=== PATIENT | male | born 1980 | race African-American/Black ===

== ENCOUNTER 2021-10-18 21:48 | Emergency (ER) | payer MEDICAID, OTHER ==
[~2021-10-18] VITALS: Ht 170.2 cm; Wt 77.1 kg
[2021-10-19] MEDS: HALOPERIDOL LACTATE INJ 5 MG/ML VIAL IM ONE (05:12)
--- NOTE | 2021-10-19 07:34 | NUR ---
PATIENT IN BED ASLEEP, EASILY AROUSABLE BY VOICE. HOOKED TO MONITOR. VSS. WILL CONTINUE TO MONITOR, KEPT WARM AND SAFE.
--- NOTE | 2021-10-19 12:10 | NUR ---
LUNCH TRAY PROVIDED. TOLERATED PO WELL.
--- NOTE | 2021-10-19 14:02 | NUR ---
"SS Consult: SS consult for ETOH. Pt. Is a 40-year-old male. Pt. does not demonstrate adequate insight to the reason for hospitalization. Per pt., he does not remember how he got to hospital. Pt. was oriented x3, alert, and cooperative. During interview, pt. was capable of following directions, made appropriate eye-contact, and appeared tired. Evidenced by: red eyes. Pt.'s speech was at a normal rate. SW explored pt.'s Hx of mental health and substance abuse. Pt. reported no Hx of mental health, suicidal or homicidal. Pt. denies auditory hallucinations, visual hallucinations, paranoia, or delusions. Per pt., he currently uses methamphetamine and marijuana. Per pt., he has not try receiving help nor want to. SW explored pt.'s living situation. Per pt., he has been homeless for 10 years and lives in a tent. Per pt., he reports having no adequate support. Plan: SW provided available addiction and homeless resources and pt. accepted. Pt. was willing to sign homeless waiver, and its placed in his chart. Per pt., he will use the resources that are provided. Resources Provided: Year-round shelters: [facility] [address] [place] [address] ; [facility] [place] [address] [place] [address]; [facility] [facility] Fvafiik[address] [facility] [address] Winter Shelters: [facility] Provider: [facility] Address: [address] [place], [place] [address]Zeferino Dupont, [facility] # of Beds: 47 Population Served: [facility] 6 | [facility] Gabi [place] Provider: [facility] Address: [address] [place] [address], [address] # of Beds: 66 Population Served: [facility]ocks [place] Provider: First to Serve Address: [address] [facility], [address] # of Beds: 56 Population Served: [facility] Richard RafZeferino GuerrierCandor Provider: / [facility] Address: [address] [facility], [address] # of Beds: 49 Population Served: [facility] 8 | [place] Provider: First to Serve Address: [facility]5 [facility] Giraldo # of Beds: 37 Population Served: [facility]: [facility]: [address] [place] ; [facility] [address] [facility] ; [facility] 6[address] [facility] . Food Resources: [place] [facility] at [facility]- [address] [place]; Meet Each Need with Dignity ([facility]) [address] [facility]; [facility] 89[address] [facility]; [facility] 0865 [facility]. Mental Health resources provided: [facility] [address] [place], [place] [id number] ; [facility] [address] [facility] [address], [place], [place] [phone] ; [facility] [address] [place], [place] [id number] ; [facility] [address] [place], [place] [phone] Healthcare Clinics: [facility] [address] [facility], [address] [place]. [place] ; [facility] [address] [facility] [address] [place] [address]; [facility] [place] [address] [facility]. [place] [id number]) [phone] Counseling[facility] [address] [facility], [address] [place], [place] [address] (Specializes in in-depth psychotherapy for emotional distress: anxiety, depression, interpersonal conflicts, life transitions, childhood abuse) [facility] [address] [place] [address] (Assist with solving problem marital difficulties, separation & divorce, aging parents, & grief, chronic & terminal illness) [facility] [address] [place], [place] [address] (Deal with loss & grief, anxiety, marital difficulties) Homebound/Mental Health Services [address] [facility] [address] [place], [place] [phone] (Provide in-home mental services to people who are incapable of leaving their homes) [facility] Elder[facility] Senior Service/Resource Center [address] [place] [address] [facility] [address]14 [place], [place] [address] PSYCHIATRIC OUTPATIENT SERVICES [facility] Partial Hospitalization and Intensive Outpatient Program (Managed Care and [place] Only)[address] [facility] [phone] [facility] Partial Hospitalization and Outpatient Nxyotbb90422 [facility] [address] [place], [place] [phone] [facility] [place] Xny[address] [facility] [address] [place], [place] [phone] [facility] Partial Hospitalization and Outpatient Lestlco03850 [place], [phone] Substance Abuse resources provided included: [facility] Substance Abuse Self-Helpline (SASH) ; [facility] [address] [facility]. [place] [address] ; [facility] [address] [facility] [address] ; [facility] [address] [place] [facility] [address] ; [facility] [address] ; [facility] [address] [facility] [phone] ; [facility] [address] [facility] [phone] ; [facility] Substance Abuse Helpline(SAS)[facility] ; [facility] ; [facility] [place]; [facility] [place]; [facility] [place]; [facility] [place]; [facility] [place]; [facility] [place]; [facility] [place]; [facility] [place], [facility]. [place]; Alcoholics Anonymous -SFV; Xw-Zqup-Cymbkym ; Marijuana Anonymous -SFV; Narcotics Anonymous www.na.org;"
--- NOTE | 2021-10-19 15:15 | NUR ---
PATIENT IN BED ASLEEP, EASILY AROUSABLE BY VOICE. HOOKED TO MONITOR. VSS. WILL CONTINUE TO MONITOR, KEPT WARM AND SAFE.
[2021-10-19 17:36] VITALS: BP 111/69
--- NOTE | 2021-10-19 17:36 | NUR ---
Patient does not wish to proceed with medical care recommended by Dr. Neves. Patient given information related to possible complications, up to and including , which could occur as a result of leaving the hospital at this time. Patient verbalizes understanding of risks involved due to leaving against medical advice. Patient has signed AMA form. Ambulatory with steady gait.
== END 2021-10-19 17:36 | disposition home or self-care (01) ==
LOC: ER 21:51
DX: F10.129 Alcohol abuse with intoxication, unspecified (principal); R40.0 Somnolence; Z59.00 Homelessness unspecified; Y90.9 Presence of alcohol in blood, level not specified
CPT/HCPCS: 70450-TC

== ENCOUNTER 2022-01-13 16:37 | Emergency (ER) | payer SELFPAY ==
[~2022-01-13] VITALS: Ht 165.1 cm; Wt 62.6 kg
--- NOTE | 2022-01-13 17:49 | NUR ---
PT CAME TO ER C/O L MIDDLE FINGER PAIN/SWELLING X 2 DAYS. PT DOES NOT RECALL HOW HE INJURED IT. BLOOD BLISTER NOTED. AAOX4, BREATHING EVEN AND UNLABORED.
--- NOTE | 2022-01-13 17:51 | NUR ---
PA AT BEDSIDE
[2022-01-13] MEDS ORDERED: CLINDAMYCIN 900 MG in IV D5W 50 ML IV ONE (18:30)
[2022-01-13] MEDS ORDERED: VANCOMYCIN 1 GM in IV D5W 250 ML IV ONE (18:30)
[2022-01-13] MEDS ORDERED: IV NS 0.9% 1,000 ML BAG IV ONE (18:30)
--- NOTE | 2022-01-13 18:30 | NUR ---
MOVE SHEET SUBMITTED.
--- NOTE | 2022-01-13 18:50 | NUR ---
blood sample obtained and sent to lab
--- NOTE | 2022-01-13 19:19 | NUR ---
covid sample obtained and sent to lab
--- NOTE | 2022-01-13 19:40 | NUR ---
CALLED [facility] [phone] NO CAPACITY PER SNOW Lazar
--- NOTE | 2022-01-13 19:43 | NUR ---
CALLED [facility] [phone] AT [facility] PER FILOMENA.
--- NOTE | 2022-01-13 19:53 | NUR ---
CALLED [facility] [phone] PER BESSY NOT A BURN CENTER AND AT CAPACITY.
--- NOTE | 2022-01-13 20:00 | NUR ---
CALLED [facility] [phone] RAMANDEEP SPEAKING WITH GÉNESIS DONOVAN.
--- NOTE | 2022-01-13 20:08 | NUR ---
CALLED [facility] [phone] ROBIN WILL CONTACT GÉNESIS DONOVAN FOR CONSULT.
[2022-01-13 20:10] LABS: CALCIUM, SERUM 8.3 mg/dL (8.5-10.1); CREATININE 0.8 mg/dL (0.6-1.3); POTASSIUM 3.4 mmol/L (3.5-5.1)
--- NOTE | 2022-01-13 20:13 | NUR ---
FACESHEET FAXED TO [facility]
--- NOTE | 2022-01-13 20:15 | NUR ---
CALLED [facility] [phone] PEREZ SPEAKING WITH GÉNESIS DONOVAN.
[2022-01-13 20:25] LABS: BASOPHILS % (AUTO) 0.1 % (0.0-2.0); EOSINOPHILS % (AUTO) 0.2 % (0.0-6.0); HEMATOCRIT 46 % (39-51); HEMOGLOBIN 15.3 g/dL (13.5-17.5); LYMPHOCYTES # (AUTO) 1.7 K/uL (0.8-4.8); LYMPHOCYTES % (AUTO) 10.5 % (20.0-44.0); MEAN CORPUSCULAR HGB CONC 34 g/dl (31.0-36.0); MEAN CORPUSCULAR VOLUME 92 fL (80-96); MONOCYTES # (AUTO) 1.4 K/uL (0.1-1.30); MONOCYTES % (AUTO) 8.5 % (2.0-12.0); NEUTROPHILS # (AUTO) 13.2 K/uL (1.8-8.9); NEUTROPHILS % (AUTO) 80.7 % (43.0-81.0); PLATELET COUNT (AUTO) 309 K/uL (150-450); RED BLOOD CELL COUNT(AUTO) 4.94 MIL/uL (4.5-6.0); WHITE BLOOD COUNT (AUTO) 16.3 K/uL (4.3-11.0)
--- NOTE | 2022-01-13 20:52 | NUR ---
FAXED CLINICALS TO [facility] [phone]
[2022-01-13] MEDS ORDERED: HYDROCODONE/APAP 5/325MG TABLET PO PRN (22:30)
--- NOTE | 2022-01-13 23:01 | NUR ---
PER MIMI [phone] FROM [facility] THEY WILL NOT ACCEPT THE PT. DUE TO THEIR ED BEING DOWN FOR SATURATION.
--- NOTE | 2022-01-14 03:45 | NUR ---
PT SLEEPING IN BED. VSS. PT IN NO ACUTE DISTRESS AT THIS TIME. PT COMPLIANT WITH CARE
[2022-01-14] MEDS ORDERED: CLINDAMYCIN 900 MG/6 ML VIAL ONE (04:18)
[2022-01-14] MEDS ORDERED: CLINDAMYCIN IV RTU IN D5W 600 MG/50 ML PIGGYBACK IV SCH (05:00)
[2022-01-14] MEDS ORDERED: VANCOMYCIN 1 GM in IV D5W 250 ML IV SCH (08:00)
--- NOTE | 2022-01-14 08:06 | NUR ---
THE PATIENT IS RECEIVED IN ER BED #12. THE PATIENT IS ALERT AND ORIENTED X4. DENIES PAIN AT THIS TIME. IN ROOM AIR AND DENIES SOB. RESPIRATION REGULAR AND UNLABORED. WILL CONTINUE TO MONITOR THE PATIENT.
--- NOTE | 2022-01-14 08:55 | NUR ---
THE PATIENT IS PROVIDED WITH BREAKFAST. NOTED TO HAVE GOOD APPETITE. TOLERATES PROVIDED MEAL WELL.
--- NOTE | 2022-01-14 10:03 | NUR ---
Patient does not wish to proceed with medical care recommended by Dr. Henley. Patient given information related to possible complications, up to and including , which could occur as a result of leaving the hospital at this time. Patient verbalizes understanding of risks involved due to leaving against medical advice. Patient has signed AMA form.
[2022-01-14 10:29] VITALS: BP 141/76
[2022-01-14] MEDS ORDERED: CLINDAMYCIN 600 MG in IV D5W 50 ML IV SCH (13:00)
== END 2022-01-14 10:00 | disposition left against medical advice (07) ==
LOC: ER 16:41 → TRANSITION 01-14 08:01 → UNDOADMIN 01-14 08:01 → ER 01-14 10:00 → UNDODISIN 01-14 10:03
DX: T23.232A Burn of second degree of multiple left fingers (nail), not including thumb, initial encounter (principal); T79.8XXA Other early complications of trauma, initial encounter; L03.012 Cellulitis of left finger; X08.8XXA Exposure to other specified smoke, fire and flames, initial encounter; Y93.89 Activity, other specified; Y92.89 Other specified places as the place of occurrence of the external cause; T31.0 Burns involving less than 10% of body surface; Z88.0 Allergy status to penicillin; Z59.00 Homelessness unspecified; M65.842 Other synovitis and tenosynovitis, left hand; Z20.822 Contact with and (suspected) exposure to COVID-19; Z53.29 Procedure and treatment not carried out because of patient's decision for other reasons
CPT/HCPCS: 36415; 73130; 80048; 83605; 85025; 87426; 96365; 96366 ×2; 96367; 99285; C9803; J3370 ×2; J3490 ×2; J7030; J7060 ×3; G0378